=== PATIENT | female | born 1995 | race Caucasian/White ===

== ENCOUNTER 2018-08-24 06:54 | Inpatient (IN) | payer MEDICAID ==
[~2018-08-24] VITALS: Ht 160 cm; Wt 93.6 kg
[2018-09-03] VITALS (41 sets, daily range): BP systolic 108–152; BP diastolic 53–86; PULSE 56–81; TEMP 97.7–98.7
[2018-09-03] MEDS ORDERED: PRENATAL MVI (07:43)
--- NOTE | 2018-09-03 08:00 | NUR ---
0730 G2L0 at 40.1 weeks gestation to LDR3 for induction of labor. Patient changed into gown and wedged to left side in bed. Plan of care reviewed. EFMs explained and applied. FHR 130 bpm and reactive. No CTX per toco or patient reports. VSS. Assessment completed and consents signed. 0755 IV started in left hand with labs drawn from site. LR infusing per protocol. Clindamyocin infusing per GBS+ protocol. 0800 Pitocin started at 2mu per orders and protocol.
--- NOTE | 2018-09-03 08:30 | NUR ---
0827 FHR down to 90 bpm over 3 minutes. Patient turned to high left side and FHR returns to baseline of 130 bpm.
[2018-09-03 09:09] LABS: BASO % 0.2 % (0.0-2.0); EOS # 0.1 (0.0-0.7); EOS % 1.2 % (0-4.0); GRAN # 6.2 (1.4-6.5); HEMOGLOBIN 13.1 g/dl (12.5-16.0); LYMPH # 2.7 (1.2-3.4); LYMPH % 28.1 % (20.0-51.0); MEAN CELL VOLUME 85 fl (80.0-100.0); MEAN CORPUSCULAR HEMOGLOBIN 29 pg (27.0-31.0); MEAN CORPUSCULAR HGB CONC 34 g/dl (33.0-37.0); MEAN PLATELET VOLUME 10.7 fl (7.4-10.4); MONO # 0.6 (0.1-0.6); MONO % 5.9 % (1.7-9.3); PLATELET COUNT 186 K/mm3 (130-400); RED BLOOD COUNT 4.57 M/mm3 (4.10-5.30); REDCELL DISTRIBUTION WIDTH-CV 13.4 % (11.5-14.5)
--- NOTE | 2018-09-03 09:30 | NUR ---
Dr. Cedeno at bedside, reviews FHR tracing, SVE with AROM. /-2 with meconium fluid noted. Scalp electrode and IUPC placed by Dr. Cedeno.
--- NOTE | 2018-09-03 09:30 | NUR ---
Patient umcomfortable with contractions, requesting epidural. IVF bolus started and WELL TENDER notified.
--- NOTE | 2018-09-03 09:51 | NUR ---
0945 TINO Solitario to bedside to place epidural. Patient sits upright on the side of the bed. Single shot administered by TINO Solitario at 0951. See anesthesia record for details of placement. 1000 Patient wedged to right side.
--- NOTE | 2018-09-03 14:10 | NUR ---
1401 - FHR down to 70-80 bpm over 90 seconds. SVE - complete/+2, FHR returns to baseline of 120 bpm with SVE. 1402 - After SVE FHR down to 60 bpm. Patient turned to high right side and then to high left side. IVF bolus started, pitocin turned off, and O2 on at 10L per mask. FHR remains at 60 bpm. 1404 - Dr. Cedeno called and updated and on her way to the hospital. 1405 - Patient assisted to knee chest position. 1409 - FHR returns to 120 bpm. 1410 - Dr. Cedeno to patient room, reviews FHR tracing, plan of care reviewed with patient. Dr. Cedeno remains on unit.
--- NOTE | 2018-09-03 14:30 | NUR ---
Patient assisted to left side from knee chest. 1435 - Roles at bedside and patient instructed to push with contractions.
--- NOTE | 2018-09-03 15:00 | NUR ---
1455 - Dr. Cedeno discusses forcep assisted delivery with patient, patient states understanding, patient prepped for delivery and continues to push with contractions. 1500 - Forcep assisted vaginal delivery of viable male by Dr. Cedeno. Cord clamped and cut and infant to the care of the nursery RN. 1506 - Spontaneous delivery of placenta by Dr. Cedeno. Pitocin infusing at 333ml/hr per orders and protocol. Fundus firm, lochia WNL. Repair of 2nd degree laceration by Dr. Cedeno.
--- NOTE | 2018-09-03 18:45 | NUR ---
1845 UP TO BR WITH ASSIST AND VOIDED 300CC EASILY. PERICARE DONE AND AMB TO 208 AND DORIS WELL
[2018-09-04 07:45] VITALS: BP 125/70; PULSE 59; TEMP 97.8
[2018-09-04] MEDS ORDERED: IBU600 MG PO (08:34)
[2018-09-04] MEDS ORDERED: PERCOCET 325 MG1 TA2 PO (08:35)
--- NOTE | 2018-09-04 11:28 | NUR ---
Initial visit; Mom thanked Keyboard Action Assembler for offering congratulations and God's blessings for the of her so. Keyboard Action Assembler thanked Mom for choosing [facility].
[2018-09-04 17:00] VITALS: BP 122/72; PULSE 65; TEMP 97.8
[2018-09-04 19:45] VITALS: BP 127/70; PULSE 76; TEMP 97.6
[2018-09-05 07:57] VITALS: BP 124/67; PULSE 76; TEMP 98.1
== END 2018-09-05 10:50 | disposition home or self-care (01) | DRG 807 ==
LOC: LDR 09-03 06:54 → OB 09-03 07:09 → LDR 09-03 07:09 → OB 09-03 17:26
PROVIDERS: ADMIT Obstetrics & Gynecology
PROC: 10D07Z3 Extraction of Products of Conception, Low Forceps, Via Natural or Artificial Opening (ICD-10-PCS; principal; 2018-09-03)
PROC: 0KQM0ZZ Repair Perineum Muscle, Open Approach (ICD-10-PCS; 2018-09-03)
PROC: 3E033VJ Introduction of Other Hormone into Peripheral Vein, Percutaneous Approach (ICD-10-PCS; 2018-09-03)
PROC: 10907ZC Drainage of Amniotic Fluid, Therapeutic from Products of Conception, Via Natural or Artificial Opening (ICD-10-PCS; 2018-09-03)
DX: O76 Abnormality in fetal heart rate and rhythm complicating labor and delivery (principal); Z37.0 Single live birth; Z3A.40 40 weeks gestation of pregnancy; O77.0 Labor and delivery complicated by meconium in amniotic fluid; O70.1 Second degree perineal laceration during delivery; O99.824 Streptococcus B carrier state complicating childbirth; F90.9 Attention-deficit hyperactivity disorder, unspecified type; J45.909 Unspecified asthma, uncomplicated
CPT/HCPCS: J2405; J2590; J2795; J7120

== ENCOUNTER → 2021-04-02 | Outpatient (CLI) | payer OTHER ==
[~2021-04-02] MED LIST: IBU600 MG PO; PERCOCET 325 MG1 TA2 PO; PRENATAL MVI
== END ==
LOC: MC.RAD 09:17
DX: Z12.31 Encounter for screening mammogram for malignant neoplasm of breast (principal); N63.10 Unspecified lump in the right breast, unspecified quadrant

== ENCOUNTER → 2021-04-07 | Outpatient (CLI) | payer OTHER | LOC: MC.RAD 10:00 | DX: N63.10 Unspecified lump in the right breast, unspecified quadrant (principal) ==

== ENCOUNTER 2022-05-06 10:44 | Inpatient (IN) | payer MEDICAID ==
[~2022-05-06] VITALS: Ht 162.6 cm; Wt 92.7 kg
[2022-05-11] VITALS (29 sets, daily range): BP systolic 85–143; BP diastolic 53–77; PULSE 54–82; TEMP 98
--- NOTE | 2022-05-11 06:20 | NUR ---
0620 - PATIENT AMBULATORY TO LDR4 ACCOMPANIED BY FRIEND. PATIENT ORIENTED TO ROOM. PATIENT CHANGES INTO GOWN. PLAN OF CARE REVIEWED. 0635 - PATIENT ON MONITOR. PATIENT DENIES CONTRACTIONS, LEAKING OF FLUID OR BLOODY SHOW. PATIENT REPORTS CHECKING GLUCOSE AT HOME WITH FASTING BG IN 80S AND AFTER MEALS IN 110-120 RANGE. 0710 - PLAN OF CARE REVIEWED. SVE PERFORMED BY THIS RN. . CONSENTS REVIEWED AND SIGNED. 0725 - IV START. LR STARTED ORDERED. PITOCIN GTT STARTED ORDERED. CARE ONGOING.
[2022-05-11 07:51] LABS: BASO % 0.3 % (0.0-2.0); EOS # 0.1 K/mm3 (0.0-0.7); EOS % 1.2 % (0.0-4.0); GRAN # 7.9 K/mm3 (1.4-6.5); GRAN % 70.3 % (42.2-75.2); HEMOGLOBIN 12.3 g/dl (12.5-16.0); LYMPH # 2.4 K/mm3 (1.2-3.4); LYMPH % 21.3 % (20.0-51.0); MEAN CELL VOLUME 85 fl (80.0-100.0); MEAN CORPUSCULAR HEMOGLOBIN 29 pg (27-31); MEAN CORPUSCULAR HGB CONC 34 g/dl (33.0-37.0); MEAN PLATELET VOLUME 9.9 fl (7.4-10.4); MONO # 0.7 K/mm3 (0.1-0.6); MONO % 5.9 % (1.7-9.3); PLATELET COUNT 242 K/mm3 (130-400); RED BLOOD COUNT 4.25 M/mm3 (4.10-5.30); REDCELL DISTRIBUTION WIDTH-CV 13.8 % (11.5-14.5)
[2022-05-11 07:57] LABS: HEMATOCRIT 36.3 % (37.0-47.0)
--- NOTE | 2022-05-11 08:50 | NUR ---
0850 - PATIENT REQUESTING EPIDURAL. TINO CARRERA CALLED FOR ANESTHESIA. PATIENT POSITIONED SITTING EDGE OF BED. 0905 - UNDER CUTTER AT BEDSIDE FOR EPIDURAL PLACEMENT. 0915 - SINGLE SHOT FOR EPIDURAL PLACEMENT PER TINO CARRERA. 0920 - LEFT HAND IV NOTED TO BE SWOLLEN. CONCERN FOR INFILTRATION. 0925 - IV STARTED RIGHT HAND. LEFT HAND IV D/C. LR AND PITOCIN RESTARTED THROUGH RIGHT HAND IV. PATIENT REPOSITIONED. CARE ONGOING.
--- NOTE | 2022-05-11 12:35 | NUR ---
1235 - MD CHARLIE AT BEDSIDE. SVE PERFORMED. PATIENT COMPLETE. PLAN OF CARE REVIEWED. PATIENT REPOSITIONED AND INSTRUCTED ON PUSHING. ROOM PREPPED. 1244 - PATIENT BEGINS PUSHING WITH CONTRACTIONS. GOOD MATERNAL EFFORT. 1248 - SPONTANEOUS VAGINAL DELIVERY OF FEMALE INFANT. SAUD JOSEPH ASSUMES CARE OF FOR NURSERY. 1251 - SPONTANEOUS DELIVERY OF INTACT PLACENTA. PITOCIN BOLUS INITIATED. FUNDAL MASSAGE PERFORMED BY . 1253 - MD CHARLIE PERFORMS REPAIR OF 2ND DEGREE LAC. PERICARE PERFORMED. PATIENT REPOSITIONED. CARE ONGOING.
[2022-05-11] MEDS ORDERED: IBU800 M1 PO (15:10)
--- NOTE | 2022-05-11 17:20 | NUR ---
1715 - DISCHARGE INSTRUCTIONS REVIEWED WITH PATIENT. QUESTIONS ANSWERED. 1720 - PATIENT AMBULATORY OFF UNIT ACCOMPANIED BY FAMILY AND AQUATIC PERFORMER.
== END 2022-05-11 15:37 | disposition home or self-care (01) | DRG 807 ==
LOC: LDR 05-11 06:10 → OB 05-11 08:48 → LDR 05-11 15:37 → OB 05-11 16:48
PROVIDERS: ADMIT Obstetrics & Gynecology
PROC: 10E0XZZ Delivery of Products of Conception, External Approach (ICD-10-PCS; principal; 2022-05-11)
PROC: 3E033VJ Introduction of Other Hormone into Peripheral Vein, Percutaneous Approach (ICD-10-PCS; 2022-05-11)
PROC: 0KQM0ZZ Repair Perineum Muscle, Open Approach (ICD-10-PCS; 2022-05-11)
PROC: 10907ZC Drainage of Amniotic Fluid, Therapeutic from Products of Conception, Via Natural or Artificial Opening (ICD-10-PCS; 2022-05-11)
DX: O24.429 Gestational diabetes mellitus in childbirth, unspecified control (principal); Z37.0 Single live birth; O99.52 Diseases of the respiratory system complicating childbirth; J45.909 Unspecified asthma, uncomplicated; F90.9 Attention-deficit hyperactivity disorder, unspecified type; O99.344 Other mental disorders complicating childbirth; O99.824 Streptococcus B carrier state complicating childbirth; O99.214 Obesity complicating childbirth; F17.200 Nicotine dependence, unspecified, uncomplicated; O99.334 Smoking (tobacco) complicating childbirth; E66.9 Obesity, unspecified; Z53.29 Procedure and treatment not carried out because of patient's decision for other reasons; O70.1 Second degree perineal laceration during delivery; Z3A.39 39 weeks gestation of pregnancy; Z86.14 Personal history of Methicillin resistant Staphylococcus aureus infection
CPT/HCPCS: J0690; J2590; J2795; J7120